=== PATIENT | male | born 1965 | race African-American/Black ===

== ENCOUNTER 2016-12-09 22:47 | Emergency (ER) | payer OTHER ==
--- NOTE | ~2016-12-09 | EKG ---
PATIENT: HEMAL ADAMS UNIT #: [id number] Ventricular Rate: 70 BPM Atrial Rate: 70 BPM P-R Interval: 144 ms QRS Duration: 88 ms Q-T Interval: 384 ms QTC Calculation(Bezet): 414 ms P [place]: 57 degrees Calculated R [place]: 3 degrees Calculated T [place]: -28 degrees Diagnosis Line: Normal sinus rhythm Diagnosis Line: Nonspecific T wave abnormality Diagnosis Line: Abnormal ECG Diagnosis Line: When compared with ECG of 28-SEP-2015 09:43, Diagnosis Line: T wave inversion more evident in Inferior leads Diagnosis Line: Confirmed by ARIEL VO MD ([id number]) on Diagnosis Line: 12/10/2016 4:36:25 PM INTERPRETING MD: TAVO MARCOS
--- NOTE | ~2016-12-09 | CR72 ---
[facility] A Service of [facility] RADIOLOGY TEXT RESULTS PATIENT: HEMAL ADAMS LOCATION: [facility] : 61 UNIT #: [id number] AGE: [address]: Emil Coffey MD SEX: M ORDER DR: [id number] [facility] [address] [place], [place] [address] [id number] MR#: [id number] Acc #: [id number] NAME: HEMAL ADAMS. : 1965 SEX: M STUDY DATE/TIME: 12/09/2016 21:01 UNIT: [facility] ROOM: STUDY DESCRIPTION: CR Chest Single View Portable Attending Physician: Emil Coffey M.D. Ordering Physician: Emil Coffey M.D. Primary Care Physician: Majo Rojas Aprn MEDICAL IMAGING REPORT This report is preliminary unless electronic signature is present EXAM Portable chest, 12/09/2016 INDICATION Chest pain, weakness, dizziness, cough, congestion since 12/08/2016. History of smoking. COMPARISON 04/10/2016 FINDINGS A single AP portable view of the chest shows both lungs to be clear. The heart is normal in size. The mediastinal contour is normal. No significant bone abnormalities are seen. IMPRESSION Normal portable chest. ADDENDUM: There is a benign chondroid lesion in the proximal right humerus. This is unchanged since 02/28/2015. Dictated by... Azeem Ellis Jr., M.D. THIS IS AN ELECTRONICALLY VERIFIED REPORT Azeem Ellis Jr., M.D. at 12/10/2016 8:00 AM MARY/hans TD: 12/09/2016 22:48 JOB #: [id number] [facility] A Service [facility] RADIOLOGY TEXT RESULTS PATIENT: HEMAL ADAMS LOCATION: [facility] : 61 UNIT #: [id number] AGE: [address]: Emil Coffey MD SEX: M ORDER DR: MEDICAL IMAGING REPORT Page 1 of 1 COPY
[2016-12-09 20:40] LABS: BASOPHIL# 0.1 X10e3 (0-0.3); BASOPHIL% 0.9 % (0-2.5); EOSINOPHIL# 0.3 X10e3 (0-0.7); EOSINOPHIL% 2.6 % (0.0-7.0); HEMATOCRIT 41.6 % (38.0-50.0); HEMOGLOBIN 13.6 gm/dL (13.0-16.0); LYMPHOCYTE# 3.8 X10e3 (1.0-3.5); LYMPHOCYTE% 38.1 % (17.0-45.0); MEAN CELL VOLUME 89.5 FL (83-96); MEAN CORPUSCULAR HEMOGLOBIN 29.1 PG (28-34); MEAN CORPUSCULAR HGB CONC 32.5 g/dL (30-36); MEAN PLATELET VOLUME 7.2 FL (6.5-11.5); MONOCYTE# 0.8 X10e3 (0-1.0); MONOCYTE% 8.1 % (3.0-12.0); NEUTROPHIL% 50.3 % (40-75); PLATELET COUNT 254 X10e3 (140-420); RED BLOOD COUNT 4.65 X10e (3.90-5.60); RED CELL DISTRIBUTION WIDTH 14.7 % (11.0-15.5); WHITE BLOOD COUNT 9.9 X10e3 (4.0-10.5)
[2016-12-09 20:41] LABS: DIFF IND NO
[2016-12-09 20:57] LABS: PARTIAL THROMBOPLASTIN TIME 28.2 SECONDS (23.5-31.3); PROTHROMBIN TIME (PATIENT) 10.1 SECONDS (9.6-11.5)
[2016-12-09 21:05] LABS: ALBUMIN SERUM 4.2 g/dL (3.5-5.0); ALKALINE PHOSPHATASE 86 U/L (32-92); ALT (SGPT) 23 U/L (10-40); AST (SGOT) 37 U/L (10-42); BILIRUBIN,TOTAL 0.6 mg/dL (0.2-2.0); BLOOD UREA NITROGEN 11 mg/dL (9-23); BUN/CREATININE RATIO 13.75; CALCIUM SERUM 8.9 mg/dL (8.4-10.2); CARBON DIOXIDE 26 mmol/L (22-31); CHLORIDE 106 mmol/L (100-111); CREATININE SERUM 0.8 mg/dL (0.6-1.4); GLOM FILT RATE Estimated 118.3 mL/min (>60); GLUCOSE FASTING 106 mg/dL (70-110); POTASSIUM 3.7 mmol/L (3.5-5.1); SODIUM 140 mmol/L (135-145)
[2016-12-09 21:15] LABS: BILIRUBIN, DIRECT <0.1 mg/dL (0.0-0.2); BILIRUBIN,INDIRECT 0.5 mg/dL (0.0-0.9)
[2016-12-09 21:48] LABS: POC - CKMB 4.7 ng/mL (0.0-7.9); POC - TROPONIN <0.05 ng/mL (<=0.05)
[~2016-12-09 22:47] MED LIST: ASPIRIN EC81 M1 PO; CIPRO PO; COLACE PO; COLACE50 MG PO; FISH OIL 1,0001 CA2 PO; GARLIC1 CAP PO; K-DUR20 ME1 PO; LEVAQUIN750 MG PO; LIPITOR PO; LISINOPRIL10 MG PO; LISINOPRIL5 MG PO; MULTI VITAMIN1 EACH PO; NITROSTAT0.4 MG SL; NORVASC PO; PAXIL10 MG PO; PAXIL40 MG PO; PRILOSEC20 M1 PO; PROVENTIL0.83 MG/ML IH; SODIUM CHLORIDE45 ML; VENTOLIN5 MG/ML IH; ZESTORETIC 20/11 TAB PO
[2016-12-09 23:20] LABS: POC - CKMB 6.2 ng/mL (0.0-7.9); POC - TROPONIN <0.05 ng/mL (<=0.05)
== END 2016-12-09 23:38 | disposition home or self-care (01) ==
LOC: CED 22:47
PROVIDERS: Emergency Medicine
DX: K21.9 Gastro-esophageal reflux disease without esophagitis (principal); I10 Essential (primary) hypertension; M19.90 Unspecified osteoarthritis, unspecified site; Z98.890 Other specified postprocedural states; Z88.1 Allergy status to other antibiotic agents; Z79.899 Other long term (current) drug therapy
CPT/HCPCS: 36415; 71010; 80048; 80076; 82553; 82947; 84484; 85025; 85610; 85730; 93005; 96374; 96375; 99284; J2765